=== PATIENT | female | born 1960 | race Caucasian/White ===

== ENCOUNTER 2023-04-23 17:50 | Inpatient (IN) | payer MEDICARE, OTHER ==
[~2023-04-23] VITALS: Ht 170.2 cm; Wt 131.4 kg
[2023-04-23] MEDS ORDERED: PREG150 PO (18:06)
[2023-04-23] MEDS ORDERED: DESVENLAFAXINE50 M3 PO (18:06)
[2023-04-23] MEDS ORDERED: OXYB5 PO (18:06)
[2023-04-23] MEDS ORDERED: OZEMPIC0.25 MG/02 SC (18:07)
[2023-04-23] MEDS ORDERED: FLUTICASONE-SA1 EAC9 INH (18:07)
[2023-04-23] MEDS ORDERED: BUPR150ER PO (18:08)
[2023-04-23] MEDS ORDERED: BUSPIRONE HCL10 M6 PO (18:08)
[2023-04-23] MEDS ORDERED: LIPITOR80 MG PO (18:08)
[2023-04-23] MEDS ORDERED: METF500 PO (18:09)
[2023-04-23] MEDS ORDERED: IRBESARTAN300 M3 PO (18:09)
[2023-04-23] MEDS ORDERED: EUTHYROX50 MC1 PO (18:09)
[2023-04-23] MEDS ORDERED: HYDR100 PO (18:09)
[2023-04-23] MEDS ORDERED: MYRBETRIQ25 MG PO (18:10)
[2023-04-23] MEDS ORDERED: ROPINIROLE HCL2 M1 PO (18:10)
[2023-04-23] MEDS ORDERED: PANTOPRAZOLE SO40 M2 PO (18:10)
[2023-04-23] MEDS ORDERED: METO100ER PO (18:10)
[2023-04-23] MEDS ORDERED: ZOLOFT10013 PO (18:10)
[2023-04-23 18:14] LABS: Base Excess Venous 6.5 mmol/L; Bicarbonate Venous 28.5 mmol/L (24.0-30.0); PCO2 Venous 62.3 mmHg (38-42); pH Blood Venous 7.33 (7.34-7.37)
[2023-04-23 18:28] LABS: Albumin/Globulin Ratio 0.8 (0.8-1.8); Bilirubin, Total 0.3 mg/dL (0.1-1.0); Bun/Creatinine Ratio 17.4 (12.0-20.0); Calcium, Blood 8.7 mg/dL (8.5-10.1); Creatinine, Blood 0.92 mg/dL (0.40-1.00); Globulin, Blood 3.8 g/dL (2.2-4.0); Magnesium, Blood 1.7 mg/dL (1.6-2.4); Potassium, Blood 4.2 mmol/L (3.5-5.5); Total Protein, Blood 6.8 g/dL (6.4-8.2)
[2023-04-23 18:33] LABS: BASOPHILS ABSOLUTE AUTO 0.15 K/mm3 (0.00-0.23); BASOPHILS PERCENT AUTO 1 % (0-2); EOSINOPHILS ABSOLUTE AUTO 0.21 K/mm3 (0.00-0.68); EOSINOPHILS PERCENT AUTO 1 % (0-6); Hematocrit 37.4 % (33.0-51.0); Hemoglobin 11.6 g/dL (11.5-16.0); IMMATURE GRAN ABSOLUTE AUTO 0.15 K/mm3 (0.00-0.10); IMMATURE GRAN PERCENT AUTO 1 % (0-1); LYMPHOCYTES ABSOLUTE AUTO 1.38 K/mm3 (0.84-5.20); LYMPHOCYTES PERCENT AUTO 7 % (21-46); MONOCYTES ABSOLUTE AUTO 1.08 K/mm3 (0.16-1.47); MONOCYTES PERCENT AUTO 5 % (4-13); Mean Corpuscular HGB 27.6 pg (26.0-34.0); Mean Corpuscular Volume 89 fL (80-100); Mean Platelet Volume 9.6 fL (9.1-12.4); NEUTROPHILS ABSOLUTE AUTO 17.12 K/mm3 (1.96-9.15); NEUTROPHILS PERCENT AUTO 85 % (41-73); Platelet Count 278 K/mm3 (150-400); RDW Coefficient Variation 13.7 % (11.7-14.2); RDW Standard Deviation 44.6 fL (35.1-46.3); White Blood Cell Count 20.09 K/mm3 (4.00-11.30)
[2023-04-23 19:34] LABS: Influenza A, PCR NEGATIVE (NEGATIVE); Influenza B, PCR NEGATIVE (NEGATIVE); Resp Syncytial Virus, PCR NEGATIVE (NEGATIVE); SARS-Cov-2 (COVID-19) PCR, MMC NEGATIVE (NEGATIVE)
[2023-04-23 22:17] VITALS: BP 130/55
[2023-04-23 23:35] VITALS: BP 130/57
--- NOTE | 2023-04-24 00:14 | NUR ---
ARRIVAL TO U PT ARRIVED TO [facility] AT 2215 VIA GURNEY. PT SLID FROM GURNEY TO BED W/ SIGNIFICANT STAFF ASSISTANCE. ALERT, ORIENTED X4; MAKES ODD STATEMENTS AT TIMES AND IS FORGETFUL. ARRIVED ON 3.5L VIA NC W/ SPO2 >92%, OCCASIONAL COUGH. BP STABLE, MAP >65. PT DENIES CHEST PAIN/PRESSURE. HR 80-90'S, SINUS RHYTHM ON TELE. AFEBRILE. ATTENDS CHANGED ON ARRIVAL, MEPILEX PLACED ON COCCYX AND LEFT HIP. PUREWICK PLACED FOR INCONTINENCE, POWDER APPLIED TO PANUS AND UNDER BREASTS. REDNESS NOTED IN FOLDS, SEE PHOTOS IN CHART. HIPS FLOATED ON PILLOWS. PT ORIENTED TO ROOM/UNIT. EDUCATED ON FIRE SAFETY/IGNITION RISKS; PT IS A NONSMOKER AND DOES NOT HAVE ANY IGNITION SOURCES PRESENT. CALL LIGHT WITHIN REACH, BED IN LOWEST POSITION.
[2023-04-24 03:16] VITALS: BP 126/65
--- NOTE | 2023-04-24 05:00 | NUR ---
END OF SHIFT NOTE: NO ACUTE CHANGES SINCE ARRIVAL TO PCU. PT REMAINS A&OX4, ODD STATEMENTS CONTINUE. PT FORGETFUL ABOUT SMALL DETAILS SUCH THE ROOM SHE IS IN. PT STATED THAT SHE CURRENTLY LIVES AT HOME WITH HER SON AND DAUGHTER IN LAW HER PRIMARY CAREGIVERS, BUT LATER STATED THAT SHE HAS BEEN LIVING IN [place] [facility]. PER PT, FAMILY IS PLANNING TO COME TO BEDSIDE DURING DAY SHIFT W/ MED LIST AND TO PROVIDE ADDITIONAL DETAILS PT IS A POOR HISTORIAN. VSS. HR 80-90'S, SINUS RHYTHM ON TELE. BP STABLE, MAP >65. SPO2 >93% ON 3.5L VIA NC WHILE AWAKE, CPAP W/ 2L BLEED IN WHILE ASLEEP. AFEBRILE. PUREWICK IN PLACE W/ 800ML VOID EARLY THIS AM, ATTENDS CHANGED TO KEEP C/D/I. NO BM'S OVERNIGHT. REPOSITIONED T/O SHIFT. NO OTHER EVENTS. CALL LIGHT WITHIN REACH, BED IN LOWEST POSITION. WILL REPORT TO ONCOMING RN.
[2023-04-24 05:57] LABS: BASOPHILS ABSOLUTE AUTO 0.09 K/mm3 (0.00-0.23); BASOPHILS PERCENT AUTO 1 % (0-2); EOSINOPHILS PERCENT AUTO 0 % (0-6); Hematocrit 33.6 % (33.0-51.0); Hemoglobin 10.5 g/dL (11.5-16.0); IMMATURE GRAN ABSOLUTE AUTO 0.15 K/mm3 (0.00-0.10); IMMATURE GRAN PERCENT AUTO 1 % (0-1); LYMPHOCYTES ABSOLUTE AUTO 1.04 K/mm3 (0.84-5.20); LYMPHOCYTES PERCENT AUTO 5 % (21-46); MONOCYTES ABSOLUTE AUTO 0.48 K/mm3 (0.16-1.47); MONOCYTES PERCENT AUTO 2 % (4-13); Mean Corpuscular HGB 28.2 pg (26.0-34.0); Mean Corpuscular HGB Conc 31.3 g/dL (31.5-36.5); Mean Corpuscular Volume 90 fL (80-100); Mean Platelet Volume 9.3 fL (9.1-12.4); NEUTROPHILS ABSOLUTE AUTO 17.87 K/mm3 (1.96-9.15); NEUTROPHILS PERCENT AUTO 91 % (41-73); Platelet Count 243 K/mm3 (150-400); RDW Coefficient Variation 13.5 % (11.7-14.2); RDW Standard Deviation 44.2 fL (35.1-46.3); Red Blood Cell Count 3.72 M/mm3 (3.80-5.20); White Blood Cell Count 19.63 K/mm3 (4.00-11.30)
[2023-04-24 08:10] VITALS: BP 150/74
[2023-04-24 12:37] LABS: Adenovirus Not Detected (NOT DETECT); Bordetella pertussis Not Detected (NOT DETECT); Chlamydophila pneumoniae Not Detected (NOT DETECT); Coronavirus 229E Not Detected (NOT DETECT); Coronavirus HKU1 Not Detected (NOT DETECT); Coronavirus NL63 Not Detected (NOT DETECT); Coronavirus OC43 Not Detected (NOT DETECT); Human Metapneumovirus Not Detected (NOT DETECT); Human Rhinovirus/Enterovirus Not Detected (NOT DETECT); Influenza A/2009-H1 Not Detected (NOT DETECT); Influenza A/H1 Not Detected (NOT DETECT); Influenza A/H3 Not Detected (NOT DETECT); Influenza B Not Detected (NOT DETECT); Mycoplasma pneumoniae Not Detected (NOT DETECT); Parainfluenza Virus 1 Not Detected (NOT DETECT); Parainfluenza Virus 2 Not Detected (NOT DETECT); Parainfluenza Virus 3 Not Detected (NOT DETECT); Parainfluenza Virus 4 Not Detected (NOT DETECT); Respiratory Syncytial Virus Not Detected (NOT DETECT); SARS-Cov-2 (COVID-19), BioFire Not Detected (NOT DETECT)
[2023-04-24] MEDS ORDERED: VITAMIN D350 MC3 PO (12:51)
[2023-04-24] MEDS ORDERED: FLUT1DIS5 INH (12:56)
[2023-04-24] MEDS ORDERED: PREG150 PO (12:57)
[2023-04-24] MEDS ORDERED: ASPI81CH PO (12:58)
[2023-04-24] MEDS ORDERED: LORA10ER PO (13:01)
[2023-04-24] MEDS ORDERED: FLONASE ALLERG9.9 M2 (13:06)
[2023-04-24] MEDS ORDERED: ISOSORBIDE PO (13:10)
[2023-04-24] MEDS ORDERED: INSDET100 SC (13:13)
[2023-04-24] MEDS ORDERED: NOVOLOG FL100 UNIT/3 SC ×2 (13:14→13:16)
[2023-04-24 14:43] VITALS: BP 155/79
[2023-04-24 16:44] VITALS: BP 146/61
--- NOTE | 2023-04-24 18:26 | NUR ---
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 SHE TRANSFERS W/ A 1P ASSIST W/ FWW AND HAS BEEN UP IN THE CHAIR HALF OF THE DAY. SHE HAS HAD A PURWICK SET UP TO SUCTION AND HAS HAD A LARGE BOWEL MOVEMENT REPORTED BY THE SENIOR STACK ENGINEER. SHE WAS ON 3L NC BUT RT HAS TITRAITED HER TO RA AND SHE HER SP02 HAS BEEN >90% AND SHE HAS DENIED ANY SOB. ON TELE SHE HAS BEEN SR 90'S W/O ANY COMPLAINTS OF ANGINA. HER CBG'S WERE HIGH TODAY. DR. ZHANG MADE SOME CHANGES TO HER INSULIN AND SHE IS CURRENTLY ON INSULIN LISPRO HIGH SLIDING SCALE. WHEN I CHECKED HER BLOOD SUGAR AT LUNCH IT WAS 413. I WAS TOLD T G[place] [facility] [place]. AFTER AN HOUR HER CBG WAS 407. DR. ZHANG WANTED ME TO GIVE AN ADDITIONA. 15UNITS. AT DINNER TIME HER CBG WAS 305 AND REQUIRED 12 UNITS. WE WILL CONTINUE TO MONITOR PER CORRECTION SCALE AT THIS TIME. THE PT WAS MADE MEDICAL STATUS THIS AFTERNOON FIRE IGNITION RISK WAS EVALUATED.
[2023-04-24 21:22] VITALS: BP 157/59
[2023-04-25 04:40] VITALS: BP 169/89
[2023-04-25 05:00] LABS: Hematocrit 34.5 % (33.0-51.0); Hemoglobin 10.7 g/dL (11.5-16.0); Mean Corpuscular HGB 27.6 pg (26.0-34.0); Mean Corpuscular Volume 89 fL (80-100); Mean Platelet Volume 9.5 fL (9.1-12.4); Platelet Count 271 K/mm3 (150-400); RDW Coefficient Variation 13.4 % (11.7-14.2); RDW Standard Deviation 43.4 fL (35.1-46.3); Red Blood Cell Count 3.88 M/mm3 (3.80-5.20); White Blood Cell Count 17.67 K/mm3 (4.00-11.30)
--- NOTE | 2023-04-25 05:22 | NUR ---
SHIFT SUMMARY: MED STATUS W/ TELE, MAINTAINING SR @80'S. PT USE OF 2L O2 VIA NC, CHANGED TO 2L VIA CPAP, SATS REMAIN HIGH 90'S. PT A&OX4, 1 ASSIST W/ FWW TO BSC. ENCOURAGED PT TO USE BSC VS [facility]. PT RETURNED TO [facility]/ ATTENDS USE THIS A.M. FOR INCONT DURING SLEEP. BED CHANGED 2X THIS SHIFT. MICONAZOLE POWDER TO UNDER PANUS/ BREAST FOR YEAST RASH, PAINFUL TO TOUCH. IV TO L FA, SL. PT ADA DIET, AC/HS ALTHOUGH REQUESTS SNACKS FREQUENTLY. HS CBG 391, DOWN FROM PREVIOUS CHECKS. NO ACUTE CHANGES THIS SHIFT. PLANS TO RETURN HOME W/ SON AND FUTURE DAUGHTER/ CAREGIVER AT DISCHARGE. CALL LIGHT W/IN REACH.
[2023-04-25 05:48] LABS: Bun/Creatinine Ratio 22.1 (12.0-20.0); Calcium, Blood 8.8 mg/dL (8.5-10.1); Creatinine, Blood 0.82 mg/dL (0.40-1.00); Magnesium, Blood 2.2 mg/dL (1.6-2.4); Phosphorus, Blood 3.3 mg/dL (2.5-4.9); Potassium, Blood 4.2 mmol/L (3.5-5.5)
--- NOTE | 2023-04-25 06:25 | NUR ---
CALL TO PROVIDER ATTEMPTED TO CALL [employer] FARMWORK[employer] PROVIDER TO INFORM OF [address] [facility] [place] @1538 LAB DRAW.
--- NOTE | 2023-04-25 06:43 | NUR ---
RETURN CALL V/O FROM DR. BURRIS TO PROVIDE PT A.M. INSULIN COVERAGE AT THIS TIME.
--- NOTE | 2023-04-25 06:53 | NUR ---
PT MEDICATED W/ 15U HUMALOG INSULIN FOR CBG OF 396
[2023-04-25 07:56] VITALS: BP 179/92
[2023-04-25 13:15] VITALS: BP 132/47
[2023-04-25 17:12] VITALS: BP 145/75
--- NOTE | 2023-04-25 18:27 | NUR ---
shift summary/transfer note Pt alert, oriented x4. Some confusion noted after taking her Lyrica medication. Sp02>90% on 2l NC, home cpap while sleeping. Productive cough noted, red sputum in AMx1, md notified. Telemetry showed nsr, hr mostly 80's. HTN noted this am, decreased after AM medications. Purwik to suction draining frequently, see I&O's. Lasix given per emar. No bm this shift. Pt noted to be coughing after drinking. Call placed to MD Manzo. MD Manzo with orders for speech eval. Speech in room to evaluate this afternoon. Pt made meds w/ applesauce. Pt up in chair for 2 hrs this am. Refused chair afer that. Refused to work with PT. CBGs elevated, notified, medicated per emar. Son and DIL visited this evening, MD Manzo in room to talk to family and update. PT medical tele status. Report given to medical RN. Pt transfered with belongings approx 1830 to room 308.
--- NOTE | 2023-04-25 18:42 | NUR ---
TRANSFER TO [facility]. PT TRANSFERED TO [facility] FROM U. ORIENTED TO ROOM. CALL LIGHT IN REACH. BEVERAGES PROVIDED. RT NOTIFIED THAT CPAP WILL NEED SET UP. NEW PUREWIK SYSTEM IN PLACE. CONT PULSE OX IN PLACE. PT DENIES OTHER NEEDS AT THIS TIME.
[2023-04-25 20:26] VITALS: BP 162/79
[2023-04-26 02:57] VITALS: BP 190/100
--- NOTE | 2023-04-26 04:13 | NUR ---
SHIFT SUMMARY PATIENT ALERT, PLEASANT/COOPERATIVE. IN BED WATCHING TV. DENIES PAIN NOR DISCOMFORT. AWAKE OFF AND ON THROUGHOUT SHIFT. USING CPAP WITH 2L O2 BLEED IN, SpO2 MAINTAINED >90%. TELE SR 80s, NO EVENTS REPORTED. NO ACUTE CHANGES NOTED OVERNIGHT. BED LOCKED, HOB ELEVATED PER PATIENT COMFORT, CALL LIGHT WITHIN REACH.
[2023-04-26 05:19] LABS: BASOPHILS ABSOLUTE AUTO 0.01 K/mm3 (0.00-0.23); BASOPHILS PERCENT AUTO 0 % (0-2); EOSINOPHILS PERCENT AUTO 0 % (0-6); Hematocrit 32.5 % (33.0-51.0); Hemoglobin 10.2 g/dL (11.5-16.0); IMMATURE GRAN ABSOLUTE AUTO 0.11 K/mm3 (0.00-0.10); IMMATURE GRAN PERCENT AUTO 1 % (0-1); LYMPHOCYTES ABSOLUTE AUTO 0.86 K/mm3 (0.84-5.20); LYMPHOCYTES PERCENT AUTO 6 % (21-46); MONOCYTES ABSOLUTE AUTO 0.53 K/mm3 (0.16-1.47); MONOCYTES PERCENT AUTO 3 % (4-13); Mean Corpuscular HGB 27.6 pg (26.0-34.0); Mean Corpuscular HGB Conc 31.4 g/dL (31.5-36.5); Mean Corpuscular Volume 88 fL (80-100); Mean Platelet Volume 9.7 fL (9.1-12.4); NEUTROPHILS ABSOLUTE AUTO 14.05 K/mm3 (1.96-9.15); NEUTROPHILS PERCENT AUTO 90 % (41-73); Platelet Count 300 K/mm3 (150-400); RDW Coefficient Variation 13.4 % (11.7-14.2); RDW Standard Deviation 43.5 fL (35.1-46.3); Red Blood Cell Count 3.69 M/mm3 (3.80-5.20); White Blood Cell Count 15.56 K/mm3 (4.00-11.30)
[2023-04-26 05:38] LABS: Calcium, Blood 8.8 mg/dL (8.5-10.1); Creatinine, Blood 0.89 mg/dL (0.40-1.00)
[2023-04-26 07:44] VITALS: BP 169/88
[2023-04-26 13:57] VITALS: BP 147/71
--- NOTE | 2023-04-26 17:12 | NUR ---
SHIFT SUMMARY PT BLOOD SUGARS ELEVATED T/O DAY. MEDICATED PER EMAR. INSULIN DOSES ADJUSTED THIS AFTERNOON BY MD. PT UP TO CHAIR FOR BREAKFAST & DINNER. LITTLE MOTIVATION TO GET UP OR STAY OOB. PT REMAINS OF BASELINE O2 DOSE OF 2L VIA NC. OVERALL PLEASANT AND COOPERATIVE WITH CARE. DIURESSING WELL WITH USE OF PURE-WIK. NO OTHER ACUTE CHANGES IN ASSESSMENT AT THIS TIME. VS REVIEWED. PT DENIES OTHER NEEDS AT THIS TIME. CALL LIGHT IN REACH.
[2023-04-26 20:00] VITALS: BP 161/76
--- NOTE | 2023-04-27 04:18 | NUR ---
SHIFT SUMMARY PATIENT HAD NO ACUTE CHANGES. AXO X 4 AND ONE ASSIST TO BSC. CBG 340. DENIES CHEST PAIN, SOB, AND N/V. ON 2L O2 NC BASELINE. PIV REMAINS INTACT. TELE MONITOR NSR @ 85. VSS/AFEBRILE. PUREWICK IN PLACE. COOPERATIVE WITH CARE. CALL LIGHT IN REACH. BED IN LOWEST POSITION. WILL CONTINUE TO MONITOR UNTIL DAY SHIFT NURSE ASSUMES CARE.
[2023-04-27 04:46] VITALS: BP 161/86
[2023-04-27 05:04] LABS: BASOPHILS ABSOLUTE AUTO 0.01 K/mm3 (0.00-0.23); BASOPHILS PERCENT AUTO 0 % (0-2); EOSINOPHILS PERCENT AUTO 0 % (0-6); Hematocrit 33.9 % (33.0-51.0); Hemoglobin 10.7 g/dL (11.5-16.0); IMMATURE GRAN ABSOLUTE AUTO 0.07 K/mm3 (0.00-0.10); IMMATURE GRAN PERCENT AUTO 1 % (0-1); LYMPHOCYTES ABSOLUTE AUTO 1.21 K/mm3 (0.84-5.20); LYMPHOCYTES PERCENT AUTO 9 % (21-46); MONOCYTES ABSOLUTE AUTO 0.71 K/mm3 (0.16-1.47); MONOCYTES PERCENT AUTO 5 % (4-13); Mean Corpuscular HGB 27.7 pg (26.0-34.0); Mean Corpuscular HGB Conc 31.6 g/dL (31.5-36.5); Mean Corpuscular Volume 88 fL (80-100); Mean Platelet Volume 9.5 fL (9.1-12.4); NEUTROPHILS ABSOLUTE AUTO 12.19 K/mm3 (1.96-9.15); NEUTROPHILS PERCENT AUTO 86 % (41-73); Platelet Count 320 K/mm3 (150-400); RDW Coefficient Variation 13.5 % (11.7-14.2); RDW Standard Deviation 43.1 fL (35.1-46.3); Red Blood Cell Count 3.86 M/mm3 (3.80-5.20); White Blood Cell Count 14.19 K/mm3 (4.00-11.30)
[2023-04-27 05:35] LABS: Bun/Creatinine Ratio 25.4 (12.0-20.0); Calcium, Blood 8.9 mg/dL (8.5-10.1); Creatinine, Blood 0.87 mg/dL (0.40-1.00); Potassium, Blood 4.3 mmol/L (3.5-5.5)
[2023-04-27 07:55] VITALS: BP 151/80
[2023-04-27 15:49] VITALS: BP 142/70
--- NOTE | 2023-04-27 18:28 | NUR ---
SHIFT SUMMARY PT UP IN CHAIR THIS MORNING AND EARLY AFTERNOON. DID WANT TO GO TO BED SOON AFTER GETTING UP BUT ENCOURAGED TO STAY UP TIL AFTER LUNCH. SOB WITH ACTIVITY BUT RECOVOERS QUICKLY. O2 AR 2L/M BY NC WHICH IS AT BASELINE. ASKING FOR LOTS OF FLUIDS AND FOOD. EDUCATED ON FLUID CONSUMPTION AND EXCESS FLUIDS SHE HAD BEEN ASKING FOR. ALSO WANTING SNACKS SEVERAL TIMES AND REMINDED OF HER HIGHER BLOOD SUGARS DUE TO STEROIDS AND SMALL SNACKS ARE OK BUT NOT LARGE SNACKS. FAMILY AT BEDSIDE FOR SHORT TIME THIS EVENING. WOULD ONLY GET UP FOR LUNCH TODAY. CONTINUOUS PULSE OX IN PLACE.
[2023-04-27 19:42] VITALS: BP 136/64
[2023-04-27 21:11] LABS: HEMOGLOBIN A1C 7.2 % (4.8-5.6)
--- NOTE | 2023-04-28 04:30 | NUR ---
SHIFT SUMMARY: PT IS ALERT AND ORIENTED. PT IS CALM AND COOPERATIVE WITH CARE. PT CALLS APPROPRIATELY. PT IS A ONE PERSON ASSIST TO THE BATHROOM OR BEDSIDE COMMODE. PT WORE CPAP OVERNIGHT, SATS > 90%, ON CONTINUOUS OXIMETRY. PT REPORTED PAIN ON ONE OCCASION, GAVE PRN TYLENOL. PT DENIES NAUSEA AND VOMITING. PT SLEPT MUCH OF THE NIGHT WHEN NOT DISTURBED. BED IN LOW POSITION, CALL LIGHT WITHIN REACH. WILL REPORT TO DAY NURSE.
[2023-04-28 05:14] VITALS: BP 184/95
[2023-04-28 05:27] LABS: BASOPHILS ABSOLUTE AUTO 0.02 K/mm3 (0.00-0.23); BASOPHILS PERCENT AUTO 0 % (0-2); EOSINOPHILS PERCENT AUTO 0 % (0-6); Hemoglobin 10.9 g/dL (11.5-16.0); IMMATURE GRAN ABSOLUTE AUTO 0.07 K/mm3 (0.00-0.10); IMMATURE GRAN PERCENT AUTO 1 % (0-1); LYMPHOCYTES ABSOLUTE AUTO 1.72 K/mm3 (0.84-5.20); LYMPHOCYTES PERCENT AUTO 15 % (21-46); MONOCYTES ABSOLUTE AUTO 0.67 K/mm3 (0.16-1.47); MONOCYTES PERCENT AUTO 6 % (4-13); Mean Corpuscular HGB 27.4 pg (26.0-34.0); Mean Corpuscular HGB Conc 31.1 g/dL (31.5-36.5); Mean Corpuscular Volume 88 fL (80-100); Mean Platelet Volume 9.4 fL (9.1-12.4); NEUTROPHILS ABSOLUTE AUTO 8.72 K/mm3 (1.96-9.15); NEUTROPHILS PERCENT AUTO 78 % (41-73); Platelet Count 331 K/mm3 (150-400); RDW Coefficient Variation 13.2 % (11.7-14.2); RDW Standard Deviation 42.9 fL (35.1-46.3); Red Blood Cell Count 3.98 M/mm3 (3.80-5.20)
[2023-04-28 06:31] LABS: Bun/Creatinine Ratio 20.3 (12.0-20.0); Calcium, Blood 9.1 mg/dL (8.5-10.1); Creatinine, Blood 0.99 mg/dL (0.40-1.00); Potassium, Blood 3.9 mmol/L (3.5-5.5)
[2023-04-28 07:26] VITALS: BP 185/87
[2023-04-28 15:14] VITALS: BP 133/60
[2023-04-28] MEDS ORDERED: Vitamin D1000 UNI1 PO (15:50)
[2023-04-28] MEDS ORDERED: ISOSORBIDE MONO60 MG PO (15:51)
[2023-04-28] MEDS ORDERED: BASAGLAR K100 UNIT/1 SC ×2 (15:52→15:58)
[2023-04-28] MEDS ORDERED: GUAI600T33 PO (15:55)
[2023-04-28] MEDS ORDERED: ALBU2.5V5 INH (15:55)
[2023-04-28] MEDS ORDERED: MICONAZOLE NITR85 GM TOP (15:56)
[2023-04-28] MEDS ORDERED: VISBIOME 112.51 EACH PO (15:57)
[2023-04-28] MEDS ORDERED: CEFU500T30 PO (15:58)
[2023-04-28] MEDS ORDERED: HUMALOG KW100 UNIT/1 SC (15:59)
[2023-04-28] MEDS ORDERED: FURO40 PO (15:59)
[2023-04-28] MEDS ORDERED: Prednisone10 MG PO (16:01)
--- NOTE | 2023-04-28 17:41 | NUR ---
DISCHARGE INSTRUCTIONS COMPLETED AND DISCUSSED WITH PTS SON AND DAUGHTER EXPRESSING UNDERSTANDING. PT LISTENED AND MADE COMMENTS BUT THEN WOULD SIT BACK IN CHAIR AN FROWN ASKING WHY DOES SHE HAVE TO DO DISCUSSED ITEMS. ATTEMPTED TO EXPLAIN HER RESPONSIBILITY WITH HER OWN CARE AND SHE TURNED HER HEAD AWAY. SON AND DAUGHTER IN LAW ATTENTIVE AND WILLING TO LEARN. TO CURB VIA W/C.
== END 2023-04-28 17:26 | disposition home health service (06) | DRG 871 ==
LOC: ER 17:50 → PCU 21:06 → MEDS 21:06 → PCU 22:12 → MEDS 04-25 18:32
PROVIDERS: Emergency Medicine; Internal Medicine; ADMIT Internal Medicine
PROC: 5A09357 Assistance with Respiratory Ventilation, Less than 24 Consecutive Hours, Continuous Positive Airway Pressure (ICD-10-PCS; principal; 2023-04-23)
PROC: 3E03329 Introduction of Other Anti-infective into Peripheral Vein, Percutaneous Approach (ICD-10-PCS; 2023-04-23)
DX: A41.9 Sepsis, unspecified organism (principal); I50.33 Acute on chronic diastolic (congestive) heart failure; J18.9 Pneumonia, unspecified organism; J96.01 Acute respiratory failure with hypoxia; J44.0 Chronic obstructive pulmonary disease with (acute) lower respiratory infection; J44.1 Chronic obstructive pulmonary disease with (acute) exacerbation; Z68.41 Body mass index [BMI] 40.0-44.9, adult; J45.901 Unspecified asthma with (acute) exacerbation; G47.33 Obstructive sleep apnea (adult) (pediatric); E11.9 Type 2 diabetes mellitus without complications; E03.9 Hypothyroidism, unspecified; I11.0 Hypertensive heart disease with heart failure; E66.01 Morbid (severe) obesity due to excess calories; F32.A Depression, unspecified; R77.8 Other specified abnormalities of plasma proteins; F41.9 Anxiety disorder, unspecified; Z99.81 Dependence on supplemental oxygen; Z11.52 Encounter for screening for COVID-19; Z79.51 Long term (current) use of inhaled steroids; Z79.84 Long term (current) use of oral hypoglycemic drugs; Z79.890 Hormone replacement therapy; Z87.891 Personal history of nicotine dependence; Z77.22 Contact with and (suspected) exposure to environmental tobacco smoke (acute) (chronic)
CPT/HCPCS: 0202U; 0241U; 36415; 71045; 80048; 80053; 82803; 82947; 83036; 83605; 83735; 83880; 84100; 84145; 84443; 84484; 85025; 85027; 87040; 92526; 92610; 93005; 93010; 93306; 94640; 94660; 94664; 94762; 96365; 96367; 97110; 97116; 97162; 97166; 97530; 97535; 99285-25; A9270; J0456; J0696; J1650; J1815; J1940; J2405; J2920; J7050

== ENCOUNTER → 2024-02-10 | Outpatient (CLI) | payer MEDICARE, OTHER ==
[~2024-02-10] MED LIST: ALBU2.5V5 INH; ASPI81CH PO; BASAGLAR K100 UNIT/1 SC; BUPR150ER PO; BUSPIRONE HCL10 M6 PO; CEFU500T30 PO; DESVENLAFAXINE50 M3 PO; EUTHYROX50 MC1 PO; FLONASE ALLERG9.9 M2; FLUT1DIS5 INH; FLUTICASONE-SA1 EAC9 INH; FURO40 PO; GUAI600T33 PO; HUMALOG KW100 UNIT/1 SC; HYDR100 PO; INSDET100 SC; IRBESARTAN300 M3 PO; ISOSORBIDE MONO60 MG PO; ISOSORBIDE PO; LIPITOR80 MG PO; LORA10ER PO; METF500 PO; METO100ER PO; MICONAZOLE NITR85 GM TOP; MYRBETRIQ25 MG PO; NOVOLOG FL100 UNIT/3 SC; OXYB5 PO; OZEMPIC0.25 MG/02 SC; PANTOPRAZOLE SO40 M2 PO; PREG150 PO; Prednisone10 MG PO; ROPINIROLE HCL2 M1 PO; VISBIOME 112.51 EACH PO; VITAMIN D350 MC3 PO; Vitamin D1000 UNI1 PO; ZOLOFT10013 PO
[2024-02-10 18:17] LABS: Source, Urine Clean Catch
[2024-02-10 19:37] LABS: Appearance, Urine Hazy (Clear); Bilirubin, Urine Neg (Neg); Blood, Urine 1+ (Neg); Color, Urine Yellow (P-Yellow); Glucose Qualitative, Urine 2+ (Neg); Ketones, Urine 1+ (Neg); Leukocyte Esterase, Urine 2+ (Neg); Nitrite, Urine Neg (Neg); Protein, Urine 2+ (Neg); Urobilinogen, Urine NORM (Normal)
[2024-02-10 19:49] LABS: Bacteria Many /hpf; Squamous Epithelial Cells Mod /hpf (Few)
== END ==
LOC: LAB 18:14 → LAB SHORT 18:14
PROVIDERS: Physician Assistant
DX: R30.0 Dysuria (principal)
CPT/HCPCS: 81001; 87077; 87086; 87186

== ENCOUNTER → 2024-06-05 | Outpatient (CLI) | payer MEDICARE, OTHER ==
[2024-06-05 10:57] LABS: Source, Urine Clean Catch
[2024-06-05 11:14] LABS: Appearance, Urine Cloudy (Clear); Color, Urine Yellow (P-Yellow); Glucose Qualitative, Urine Neg (Normal); Ketones, Urine Neg (Neg); Leukocyte Esterase, Urine 1+ (Neg); Nitrite, Urine Pos (Neg); Protein, Urine Neg (Neg); Specific Gravity, Urine 1.015 (1.003-1.022)
[2024-06-05 11:15] LABS: Bilirubin, Urine Neg (Neg); Blood, Urine Neg (Neg); Urobilinogen, Urine NORM (Normal)
[2024-06-05 11:21] LABS: Bacteria Many /hpf; Red Blood Cells, Urine Not Seen /hpf (0-2); Squamous Epithelial Cells Not Seen /hpf (Few); White Blood Cells, Urine 50-100 /hpf (0-5)
== END | disposition home or self-care (01) ==
LOC: LAB SHORT 10:51 → LAB 10:51
PROVIDERS: Physician Assistant
DX: R31.0 Gross hematuria (principal)
CPT/HCPCS: 81001; 87077; 87086; 87186

== ENCOUNTER 2025-01-19 16:51 | Emergency (ER) | payer MEDICARE, OTHER ==
[~2025-01-19] VITALS: Ht 167.6 cm; Wt 102.1 kg
[2025-01-19 17:42] LABS: BASOPHILS ABSOLUTE AUTO 0.10 K/mm3 (0.00-0.23); BASOPHILS PERCENT AUTO 1 % (0-2); EOSINOPHILS ABSOLUTE AUTO 0.31 K/mm3 (0.00-0.68); EOSINOPHILS PERCENT AUTO 3 % (0-6); Hematocrit 35.8 % (33.0-51.0); Hemoglobin 11.6 g/dL (11.5-16.0); IMMATURE GRAN ABSOLUTE AUTO 0.03 K/mm3 (0.00-0.10); IMMATURE GRAN PERCENT AUTO 0 % (0-1); LYMPHOCYTES ABSOLUTE AUTO 2.92 K/mm3 (0.84-5.20); LYMPHOCYTES PERCENT AUTO 26 % (21-46); MONOCYTES ABSOLUTE AUTO 0.98 K/mm3 (0.16-1.47); MONOCYTES PERCENT AUTO 9 % (4-13); Mean Corpuscular HGB Conc 32.4 g/dL (31.5-36.5); Mean Corpuscular Volume 90 fL (80-100); NEUTROPHILS ABSOLUTE AUTO 6.91 K/mm3 (1.96-9.15); NEUTROPHILS PERCENT AUTO 61 % (41-73); NRBC ABSOLUTE 0.00 K/mm3 (0.00-0.02); NRBC Auto 0.0 /100 WBC (0.0-0.2); Platelet Count 322 K/mm3 (150-400); RDW Coefficient Variation 12.4 % (11.7-14.2); RDW Standard Deviation 40.4 fL (35.1-46.3)
[2025-01-19 17:55] LABS: Alanine Aminotransfer (ALT/SGP 17.0 U/L (12-78); Albumin, Blood 3.0 g/dL (3.4-5.0); Albumin/Globulin Ratio 0.9 (0.8-1.8); Anion Gap 10.0 mmol/L (3-11); Aspartate Aminotrans (AST/SGOT 14.0 U/L (12-37); Bilirubin, Total 0.3 mg/dL (0.1-1.0); Blood Urea Nitrogen 21.0 mg/dL (8-24); CO2, Blood 26.0 mmol/L (21-32); Calcium, Blood 8.8 mg/dL (8.5-10.1); Chloride, Blood 105.0 mmol/L (98-108); Creatinine, Blood 0.87 mg/dL (0.40-1.00); Globulin, Blood 3.2 g/dL (2.2-4.0); Glucose, Blood 281.0 mg/dL (70-99); Potassium, Blood 4.0 mmol/L (3.5-5.5); Sodium, Blood 137.0 mmol/L (136-145); Total Protein, Blood 6.2 g/dL (6.4-8.2)
[2025-01-19 19:02] VITALS: BP 139/87
== END 2025-01-19 19:36 | disposition home or self-care (01) ==
LOC: ER 16:51
PROVIDERS: Emergency Medicine
DX: S00.83XA Contusion of other part of head, initial encounter (principal); S16.1XXA Strain of muscle, fascia and tendon at neck level, initial encounter; S39.012A Strain of muscle, fascia and tendon of lower back, initial encounter; I11.0 Hypertensive heart disease with heart failure; I50.9 Heart failure, unspecified; G47.30 Sleep apnea, unspecified; I95.9 Hypotension, unspecified; E11.9 Type 2 diabetes mellitus without complications; J44.9 Chronic obstructive pulmonary disease, unspecified; W18.30XA Fall on same level, unspecified, initial encounter; Z79.51 Long term (current) use of inhaled steroids; Z79.82 Long term (current) use of aspirin; Z79.4 Long term (current) use of insulin; Z79.899 Other long term (current) drug therapy
CPT/HCPCS: 70450; 72100; 72125; 80053; 85025; 93005; 93010; 99285-25